=== PATIENT | male | born 1970 | race Two or more races ===

== ENCOUNTER 2019-03-14 11:10 | Emergency (ER) | payer OTHER ==
[2019-03-14 11:42] VITALS: RESP 18; TEMP 98.1
[2019-03-14] MEDS ORDERED: HYDROmorphone 1 MG/ML 1 ML SYRINGE IM STA (11:55)
--- NOTE | 2019-03-14 11:57 | ED ---
General Adult HPI - General Chief complaint: Extremity Injury, Upper Stated complaint: arm injury Time Seen by Provider: 03/14/19 11:49 Source: patient, RN notes reviewed Mode of arrival: ambulatory Limitations: physical limitation - History of Present Illness Initial comments: Patient is a pleasant 48-year-old male presenting to the emergency department following a fall. Injury occurred just prior to arrival. Patient slipped back and landed on his left arm. Patient believes he hyperextended his left elbow during this. complains of moderate to severe discomfort of the elbow. Discomfort becomes extremely severe with movement. No history of significant injury to this area previously. Patient denies any other area of injury. No neck or back pain. No chest pain or abdominal pain or dyspnea. No head injury. Patient states there is some tingling. - Related Data Home Medications Medication Instructions Recorded Confirmed Hydrochlorothiazide [Hydrodiuril] 25 mg PO DAILY 03/14/19 03/14/19 Ibuprofen [Motrin Ib] 800 mg PO Q6H PRN 03/14/19 03/14/19 Lisinopril [Zestril] 5 mg PO DAILY 03/14/19 03/14/19 Previous Rx's Medication Instructions Recorded Hydrocodone/Acetaminophen [[place] 2 each PO Q6HR PRN #15 tab 03/14/19 5-325] Allergies Allergy/AdvReac Type Severity Reaction Status Date / Time No Known Allergies Allergy Verified 03/14/19 11:49 Review of Systems ROS Statement: Those systems with pertinent positive or pertinent negative responses have been documented in the HPI. ROS Other: All systems not noted in ROS Statement are negative. Constitutional: Denies: fever Eyes: Denies: eye pain ENT: Denies: ear pain Respiratory: Denies: cough Cardiovascular: Denies: chest pain Endocrine: Denies: fatigue Gastrointestinal: Denies: abdominal pain Genitourinary: Denies: dysuria Musculoskeletal: Denies: back pain Skin: Denies: rash Neurological: Denies: weakness Past Medical History Past Medical History: Hypertension History of Any Multi-Drug Resistant Organisms: None Reported Past Surgical History: Orthopedic Surgery Additional Past Surgical History / Comment(s): left wrist Past Psychological History: No Psychological Hx Reported Smoking Status: Never smoker Past Alcohol Use History: Occasional Past Drug Use History: None Reported General Exam Limitations: physical limitation General appearance: alert Head exam: Present: atraumatic, normocephalic Neck exam: Present: normal inspection. Absent: tenderness Respiratory exam: Present: normal lung sounds bilaterally Cardiovascular Exam: Present: regular rate, normal rhythm GI/Abdominal exam: Present: soft. Absent: tenderness Extremities exam: Present: tenderness (Mild tenderness left elbow region. No bony tenderness otherwise.), other (Distally the extremity is neurovascularly intact. Sensation intact. Cap refill less than 2 seconds. Strength intact. Radial and ulnar pulses intact.). Absent: full ROM (Range of motion at the left elbow is limited by pain.) Neurological exam: Present: alert. Absent: motor sensory deficit Psychiatric exam: Present: normal affect, normal mood Skin exam: Present: normal color. Absent: rash Course Vital Signs 03/14/19 11:39 Temperature 98.1 F Pulse Rate 64 Respiratory 18 Rate Blood Pressure 120/82 O2 Sat by Pulse 97 Oximetry Medical Decision Making - Medical Decision Making Patient reevaluated and feels much better following Dilaudid injection. Patient and family updated on results and need for orthopedics follow-up. Patient offered splint however refuses. Patient is receptive to sling. Patient is agreeable to a few [place] pills to help sleep at night. Patient states he does have Motrin 800. - Radiology Data Radiology results: image reviewed (X-ray left elbow shows no acute process) Disposition Clinical Impression: Elbow injury Disposition: HOME SELF-CARE Condition: Stable Instructions (If sedation given, give patient instructions): Elbow Sprain (ED) Additional Instructions: Please follow-up tomorrow with orthopedics. Use sling. Do not use arm. No lifting of arm. Ice to affected area. Continue Motrin. Return for increased pain, difficulty using her left hand or loss of sensation or weakness, worsening symptoms or any other concerns or color change. Please also follow-up with primary care physician. Prescription has been sent to [facility] on . Prescriptions: Hydrocodone/Acetaminophen [[place] 5-325] 2 each PO Q6HR PRN #15 tab PRN Reason: Pain Is patient prescribed a controlled substance at d/c from ED?: No Referrals: Markus Baltazar MD [STAFF PHYSICIAN] - 1-2 days David Acevedo MD [Medical Doctor] - 1-2 days Time of Disposition: 12:53
--- NOTE | 2019-03-14 12:26 | XR ---
EXAMINATION TYPE: XR elbow limited LT , 2 VIEWS DATE OF EXAM ORDERED: 03/14/2019 HISTORY: fall, hyperextended. COMPARISON: None. FINDINGS: No fracture, dislocation or elbow joint effusion is seen. IMPRESSION: NO ACUTE OSSEOUS LESION.
[2019-03-14 13:15] VITALS: BP 147/93; PULSE 72
== END 2019-03-14 13:14 | disposition home or self-care (01) ==
LOC: EC 11:10
DX: S59.902A Unspecified injury of left elbow, initial encounter (principal); I10 Essential (primary) hypertension; Z79.899 Other long term (current) drug therapy; W19.XXXA Unspecified fall, initial encounter
CPT/HCPCS: 73070; 99283; 96372; J1170

== ENCOUNTER 2019-03-30 09:40 | Emergency (ER) | payer OTHER ==
[2019-03-30 09:51] VITALS: BP 95/70; PULSE 84; RESP 19; TEMP 97.9
--- NOTE | 2019-03-30 09:54 | ED ---
Lower Extremity Injury HPI - General Stated Complaint: Fall Time Seen by Provider: 03/30/19 09:44 Source: patient, RN notes reviewed Limitations: no limitations - History of Present Illness Initial Comments: 48 [id number] w male presents emergency Department chief complaint of left ankle injury. Patient was shoveling his driveway, he states he slipped he states that his foot went laterally he states it was deformed states that he grabbed it and felt a pop. Patient states that the pain did improve results moderate discomfort. He denies any proximal leg pain. No prior fracture. - Related Data Home Medications Medication Instructions Recorded Confirmed Hydrochlorothiazide [Hydrodiuril] 25 mg PO DAILY 03/14/19 03/30/19 Ibuprofen [Motrin Ib] 400 mg PO Q6H PRN 03/14/19 03/30/19 Lisinopril [Zestril] 5 mg PO DAILY 03/14/19 03/30/19 Allergies Allergy/AdvReac Type Severity Reaction Status Date / Time No Known Allergies Allergy Verified 03/30/19 10:27 Review of Systems ROS Statement: Those systems with pertinent positive or pertinent negative responses have been documented in the HPI. ROS Other: All systems not noted in ROS Statement are negative. Past Medical History Past Medical History: Hypertension History of Any Multi-Drug Resistant Organisms: None Reported Past Surgical History: Orthopedic Surgery Additional Past Surgical History / Comment(s): left wrist Past Psychological History: No Psychological Hx Reported Smoking Status: Never smoker Past Alcohol Use History: Occasional Past Drug Use History: None Reported General Exam General appearance: alert, in no apparent distress Head exam: Present: atraumatic, normocephalic, normal inspection Respiratory exam: Present: normal lung sounds bilaterally. Absent: respiratory distress, wheezes, rales, rhonchi, stridor Cardiovascular Exam: Present: regular rate, normal rhythm, normal heart sounds. Absent: systolic murmur, diastolic murmur, rubs, gallop, clicks Extremities exam: Present: other (There is moderate swelling, tenderness with palpation diffusely over the medial lateral anterior surface of the left ankle pulses equal bilaterally) Neurological exam: Present: alert, oriented X3, CN II-XII intact Skin exam: Present: warm, dry, intact, normal color. Absent: rash Course Vital Signs 03/30/19 09:44 Temperature 97.9 F Pulse Rate 84 Respiratory 19 Rate Blood Pressure 95/70 O2 Sat by Pulse 94 L Oximetry Procedures - Orthopedic Splinting/Casting Injury #1 Side: left Lower Extremity Injury Location: short leg, ankle Lower Extremity Immobilizer: posterior splint, synthetic pre-padded splint Medical Decision Making - Medical Decision Making Patient has small avulsion fibular fracture though there is concern for subluxation versus dislocation. There is no evidence of this on x-ray. Case discussed with orthopedics in which the patient may be discharged walking boot. Patient must by this at all times. Patient will follow-up in office return parameters were discussed. Disposition Clinical Impression: Subluxation of left ankle joint, Closed avulsion fracture of distal end of left fibula Disposition: HOME SELF-CARE Condition: Stable Instructions (If sedation given, give patient instructions): Ankle Dislocation (ED) Additional Instructions: Please return to the Emergency Department if symptoms worsen or any other concerns. Is patient prescribed a controlled substance at d/c from ED?: No Referrals: Radha Farrell DO [Primary Care Provider] - 1-2 days David Acevedo MD [Medical Doctor] - 1-2 days Time of Disposition: 10:39
--- NOTE | 2019-03-30 10:12 | XR ---
Left ankle HISTORY: Pain, trauma 3 views of the left ankle There is lucency through the distal fibula laterally, small ossific density present distally. Tibiota lar joint shows a widened appearance, ossific density present at the lateral aspect of the joint may represent a small chip fracture. There is soft tissue swelling present. Spurring present at the tibio talar joint anteriorly. IMPRESSION: Suspect avulsion fracture distal fibula, there may be associated nondisplaced distal fibu lar fracture, ligamentous disruption, correlate for ankle instability.
== END 2019-03-30 10:45 | disposition home or self-care (01) ==
LOC: EC 09:40
DX: S82.832A Other fracture of upper and lower end of left fibula, initial encounter for closed fracture (principal); S93.02XA Subluxation of left ankle joint, initial encounter; I10 Essential (primary) hypertension; Z79.899 Other long term (current) drug therapy; W00.0XXA Fall on same level due to ice and snow, initial encounter; Y93.89 Activity, other specified
CPT/HCPCS: 29515; 99283

== ENCOUNTER → 2020-12-19 | Outpatient (CLI) | payer OTHER ==
[2020-12-20 09:56] LABS: Prostate Specific Antigen 1.2 ng/mL (0.0-2.5)
[2020-12-20 10:50] LABS: Follicle Stimulating Hormone 8.2 mIU/mL
== END | disposition home or self-care (01) ==
LOC: LABWHC1 13:58
PROVIDERS: ATTEND Internal Medicine Endocrinology, Diabetes & Metabolism
DX: E29.1 Testicular hypofunction (principal); R53.83 Other fatigue
CPT/HCPCS: 36415; 82533; 82607; 83001; 83002; 84146; 84153; 84403

== ENCOUNTER → 2021-01-19 | Outpatient (CLI) | payer OTHER ==
--- NOTE | 2021-01-25 08:21 | MR ---
EXAMINATION TYPE: MR pituitary wo/w con DATE OF EXAM: 01/19/2021 COMPARISON: None HISTORY: Testicular hypofunction, gynecomastia, prolactin increased, and other fatigue. CONTRAST: Performed utilizing 10 mL intravenous Gadavist gadolinium contrast. TECHNIQUE: Multiplanar, multiecho imaging on a 3.0 Vidhi magnet is performed through the pituitary. Attention is paid to the pituitary with thin section imaging. Postcontrast imaging is performed thro ugh the pituitary. FINDINGS: Pituitary stalk is midline. Pituitary signal is homogenous. No enlarged pituitary is evident. No optic chiasm effacement is evide nt. Optic chiasm appears normal. Suprasellar cistern is within normal limits. Normal vascular flow vo ids are within the internal carotid artery siphons. IMPRESSIONS: 1. Normal pituitary
== END | disposition home or self-care (01) ==
LOC: RADMRIMAIN 18:23
PROVIDERS: ATTEND Internal Medicine Endocrinology, Diabetes & Metabolism
DX: E29.1 Testicular hypofunction (principal); R53.83 Other fatigue
CPT/HCPCS: 70553; A9585

== ENCOUNTER → 2021-10-10 | Outpatient (CLI) | payer OTHER ==
[2021-10-10 14:57] LABS: HCT 50.2 % (39.6-50.0); HGB 16.9 g/dL (13.0-17.0); MCH 30.5 pg (27.0-32.0); MCHC 33.7 g/dL (32.0-37.0); MCV 90.6 fL (80.0-97.0); Mean Platelet Volume 9.1 fL (9.5-12.2); NRBC Per 100 WBC 0 /100 WBCS (0.0-0.0); Platelet Count 246 X 10*3/uL (140-440); RBC 5.54 X 10*6/uL (4.40-5.60); RDW 13.5 % (11.5-14.5); WBC 5.51 X 10*3/uL (4.50-10.00)
[2021-10-10 15:26] LABS: Prostate Specific Antigen 1.6 ng/mL (0.00-2.50); T4, Free (Free Thyroxine) 1.21 ng/dL (0.800-1.800)
== END | disposition home or self-care (01) ==
LOC: LABWHC1 08:33
PROVIDERS: ATTEND Internal Medicine Endocrinology, Diabetes & Metabolism
DX: E29.1 Testicular hypofunction (principal)
CPT/HCPCS: 36415; 84153; 84403; 84439; 84443; 85027

== ENCOUNTER → 2022-10-18 | Outpatient (CLI) | payer OTHER ==
--- NOTE | 2022-10-19 08:20 | MR ---
EXAMINATION TYPE: MR pituitary wo/w con DATE OF EXAM: 10/18/2022 9:54 PM COMPARISON: None 321 HISTORY: Abnormal blood test, hypertrophy of breast CONTRAST: Patient received 11 mL intravenous Gadavist gadolinium contrast. Multiplanar MultiSpin echo imaging of the pituitary fossa was performed. Unenhanced followed by cont rast enhanced images are submitted. The unenhanced portion of the study fails to demonstrate evidence for hyperintense pituitary lesion. The pituitary gland is of normal size and measures 8 x 5 mm. Following contrast administration ther e is no evidence for filling defect to suggest microadenoma. Pituitary stalk is midline. Suprasella r cistern is unremarkable without evidence for mass. Optic chiasm has a normal appearance. Cavernou s sinus including the carotid vessels appear to be within normal limits. IMPRESSION: 1. No evidence for pituitary micro or macroadenoma.
== END | disposition home or self-care (01) ==
LOC: RADMRIMAIN 20:45
PROVIDERS: ATTEND Family Medicine
DX: N62 Hypertrophy of breast (principal); R79.89 Other specified abnormal findings of blood chemistry
CPT/HCPCS: 70553; A9585

== ENCOUNTER 2023-12-02 08:34 | Day surgery (SDC) | payer OTHER ==
[2023-11-26 17:10] VITALS: BMI 32.5
[~2023-12-02 08:34] MED LIST: LIDOCAINE 1% (10MG/ML) FOR IV START INTRADERMA PRN
[2023-12-02] MEDS: IV FLUID CONTINUATION 1,000 ML IV ONE (09:05)
[2023-12-02 09:11] VITALS: TEMP 97.8
[2023-12-02] MEDS: LACTATED RINGERS 1,000 ML IV SCH (09:17)
[2023-12-02] MEDS ORDERED: PROPOFOL 10 MG/ML 20 ML VIAL IV ONE (09:55)
[2023-12-02] MEDS ORDERED: LIDOCAINE 1% INJ 10MG/ML (20 ML MDV) ONE (09:55)
--- NOTE | 2023-12-02 09:57 | P.GSHP ---
History of Present Illness H&P Date: 12/02/23 Chief Complaint: Colon cancer screening 53-year-old male here for colonoscopy. He has not had one previously. No bowel complaints. No family history of colon cancer. Past Medical History Past Medical History: Hypertension History of Any Multi-Drug Resistant Organisms: None Reported Past Surgical History: Orthopedic Surgery Additional Past Surgical History / Comment(s): left wrist SX, Past Anesthesia/Blood Transfusion Reactions: No Reported Reaction Smoking Status: Never smoker - Past Family History Mother Family Medical History: No Reported History Medications and Allergies Home Medications Medication Instructions Recorded Confirmed Type hydroCHLOROthiazide [Hydrodiuril] 25 mg PO DAILY 03/14/19 12/02/23 History lisinopriL [Zestril] 5 mg PO DAILY 03/14/19 12/02/23 History Testosterone Cypionate 200 mg IM Q10D 11/26/23 12/02/23 History [Depo-Testosterone] Allergies Allergy/AdvReac Type Severity Reaction Status Date / Time No Known Allergies Allergy Verified 12/02/23 09:09 Surgical - Exam Vital Signs Temp Pulse Resp BP Pulse Ox 97.8 F 63 16 139/87 97 12/02/23 09:09 12/02/23 09:09 12/02/23 09:09 12/02/23 09:09 12/02/23 09:09 Physical exam: General: Well-developed, well-nourished HEENT: Normocephalic, sclerae nonicteric Abdomen: Nontender, nondistended Extremities: No edema Neuro: Alert and oriented Assessment and Plan (1) Colon cancer screening Narrative/Plan: Will proceed with colonoscopy at this time Current Visit: Yes Status: Acute Code(s): Z12.11 - ENCOUNTER FOR SCREENING FOR MALIGNANT NEOPLASM OF COLON SNOMED Code(s): 963878623
--- NOTE | 2023-12-02 10:09 | P.PCN ---
Date of Procedure: 12/02/23 Procedure(s) Performed: PREOPERATIVE DIAGNOSIS: Colon cancer screening POSTOPERATIVE DIAGNOSIS: Normal exam PROCEDURE: Colonoscopy ANESTHESIA: MAC SURGEON: Chidi Casas M.D. SPECIMENS: None ENDOSCOPIC PROCEDURE: The patient was placed on the endoscopy table in the left decubitus position. The Olympus colonoscope was inserted into the anus and passed under direct visualization to the base of the cecum. The appendiceal orifice was visualized. From that point the scope was slowly withdrawn inspecti ng all surfaces carefully. There were no neoplastic inflammatory or polypoid lesions throughout the cecum, ascending, transverse, descending, sigmoid and rectum. There was no visible diverticulosis noted. Digital rectal examination was normal. The patient was taken to the recovery room in stable condition per anesthesia guidelines. RECOMMENDATIONS: Resume diet. Repeat colonoscopy 7 to 10 years.
[2023-12-02 10:33] VITALS: BP 136/88; PULSE 68; RESP 20
== END 2023-12-02 10:45 | disposition home or self-care (01) ==
LOC: ORWHC2ENDO 08:34
PROVIDERS: ATTEND Surgery
DX: Z12.11 Encounter for screening for malignant neoplasm of colon (principal); I10 Essential (primary) hypertension; F17.200 Nicotine dependence, unspecified, uncomplicated; Z79.899 Other long term (current) drug therapy
CPT/HCPCS: 45378; J2001; J2704